=== PATIENT | male | born 1950 | race American Indian/Alaskan Native ===

== ENCOUNTER 2021-06-25 16:11 | Emergency (ER) | payer MEDICARE ==
[2021-06-25] MEDS ORDERED: SODIUM CHLORIDE 0.9% 1000 ML 1,000 ML IV ONE (17:56)
[2021-06-25] MEDS ORDERED: ONDANSETRON 4 MG/2 ML INJ IV ONE (17:56)
--- NOTE | 2021-06-25 18:00 | Emergency Department Report ---
ED N/V/D HPI - General Chief complaint: Nausea/Vomiting/Diarrhea Stated complaint: NAUSEA/ABD PAIN Time Seen by Provider: 06/25/21 17:47 Source: patient, old records reviewed (David discharge paperwork provided by patient) Mode of arrival: Ambulatory Limitations: No Limitations - History of Present Illness Initial comments: 70-year-old male with a past medical history hypertension, diabetes, and bilateral BKA presents to the hospital with complaints persistent nausea and vomiting with intermittent abdominal pain. Patient was recently admitted to [facility] June 20 to for similar symptoms. As per his discharge papers his diagnoses include nausea and vomiting, type 2 diabetes, acute on chronic kidney disease, dysphagia, fecal impaction, acute urinary retention, and lactic acidosis. Patient states that he was treated with a Granados catheter which was discontinued prior to discharge and states his urination has been normal. He states that his dysphagia upon initial admission has also remained resolved. He reports that he was treated with laxatives for his fecal impaction and which has also improved. He was discharged on Nexium and Reglan. Patient initially felt like he was getting better but then had 1 episode of vomiting today with sharp mid abdominal pain. Patient is currently pain-free. He denies fever, hematemesis, dysuria, melena, or diarrhea No previous [facility] record available for review - Related Data Previous Rx's Medication Instructions Recorded Last Taken Type Ondansetron [Zofran Odt] 4 mg PO Q8HR PRN #20 tab.rapdis 06/25/21 Unknown Rx Allergies Allergy/AdvReac Type Severity Reaction Status Date / Time No Known Allergies Allergy Verified 06/25/21 16:16 ED Review of Systems ROS: Stated complaint: NAUSEA/ABD PAIN Other details as noted in HPI Comment: All other systems reviewed and negative ED Past Medical Hx - Past Medical History Hx Hypertension: Yes Hx Diabetes: Yes Additional medical history: Elevated cholesterol, urine retention bph - Surgical History Hx Cholecystectomy: Yes Additional Surgical History: Bilateral BKA - Medications Home Medications: Home Medications Medication Instructions Recorded Confirmed Last Taken Type Ondansetron [Zofran Odt] 4 mg PO Q8HR PRN #20 tab.rapdis 06/25/21 Unknown Rx ED Physical Exam - General Limitations: No Limitations - Other Other exam information: General: No acute distress Head: Atraumatic Eyes: normal appearance ENT: Moist mucous membranes Neck: Normal appearance, no midline tenderness Chest: Clear to auscultation bilaterally CV: Regular rate and rhythm Abdomen: Soft, normal bowel sounds, nontender, nondistended, no rebound or guarding Back: Normal inspection Extremity: Bilateral BKA Neuro: Alert O x 3, no facial asymmetry, speech clear, no gross motor sensory deficit Psych: Appropriate behavior Skin: No rash ED Course Vital Signs 06/25/21 06/25/21 06/25/21 16:17 18:45 18:50 Temperature 97.4 F L 98.4 F Pulse Rate 69 64 Respiratory 16 12 Rate Blood Pressure 122/57 137/64 [Left] O2 Sat by Pulse 97 99 100 Oximetry - Reevaluation(s) Reevaluation #1: 06/25/21 22:51 repeat glucose 187 ED Medical Decision Making - Lab Data Result diagrams: 06/25/21 18:00 06/25/21 18:00 Lab Results 06/25/21 06/25/21 06/25/21 Range/Units 17:58 18:00 18:00 WBC 5.8 (4.5-11.0) K/mm3 RBC 4.23 (3.65-5.03) M/mm3 Hgb 11.6 L (11.8-15.2) gm/dl Hct 35.3 L (35.5-45.6) % MCV 83 L (84-94) fl MCH 28 (28-32) pg MCHC 33 (32-34) % RDW 13.9 (13.2-15.2) % Plt Count 155 (140-440) K/mm3 Lymph % (Auto) 20.5 (13.4-35.0) % [place] % (Auto) 9.2 H (0.0-7.3) % Eos % (Auto) 2.5 (0.0-4.3) % Baso % (Auto) 0.5 (0.0-1.8) % Lymph # (Auto) 1.2 (1.2-5.4) K/mm3 [place] # (Auto) 0.5 (0.0-0.8) K/mm3 Eos # (Auto) 0.1 (0.0-0.4) K/mm3 Baso # (Auto) 0.0 (0.0-0.1) K/mm3 Seg Neutrophils % 67.3 (40.0-70.0) % Seg Neutrophils # 3.9 (1.8-7.7) K/mm3 Sodium 134 L (137-145) mmol/L Potassium 3.8 (3.6-5.0) mmol/L Chloride 93.3 L (98-107) mmol/L Carbon Dioxide 28 (22-30) mmol/L Anion Gap 17 mmol/L BUN 37 H (9-20) mg/dL Creatinine 2.2 H (0.8-1.3) mg/dL Estimated GFR 30 ml/min BUN/Creatinine Ratio 17 % Glucose 299 H (75-100) mg/dL POC Glucose 291 H (70-105) mg/dL Calcium 9.8 (8.4-10.2) mg/dL Magnesium 1.90 (1.7-2.3) mg/dL Total Bilirubin 0.30 (0.1-1.2) mg/dL AST 15 (5-40) units/L ALT 14 (7-56) units/L Alkaline Phosphatase 69 (35-129) units/L Troponin T < 0.010 (0.00-0.029) ng/mL Total Protein 6.3 (6.3-8.2) g/dL Albumin 4.1 (3.9-5) g/dL Albumin/Globulin Ratio 1.9 % Lipase 43 (13-60) units/L 06/25/21 Range/Units 20:58 WBC (4.5-11.0) K/mm3 RBC (3.65-5.03) M/mm3 Hgb (11.8-15.2) gm/dl Hct (35.5-45.6) % MCV (84-94) fl MCH (28-32) pg MCHC (32-34) % RDW (13.2-15.2) % Plt Count (140-440) K/mm3 Lymph % (Auto) (13.4-35.0) % [place] % (Auto) (0.0-7.3) % Eos % (Auto) (0.0-4.3) % Baso % (Auto) (0.0-1.8) % Lymph # (Auto) (1.2-5.4) K/mm3 [place] # (Auto) (0.0-0.8) K/mm3 Eos # (Auto) (0.0-0.4) K/mm3 Baso # (Auto) (0.0-0.1) K/mm3 Seg Neutrophils % (40.0-70.0) % Seg Neutrophils # (1.8-7.7) K/mm3 Sodium (137-145) mmol/L Potassium (3.6-5.0) mmol/L Chloride (98-107) mmol/L Carbon Dioxide (22-30) mmol/L Anion Gap mmol/L BUN (9-20) mg/dL Creatinine (0.8-1.3) mg/dL Estimated GFR ml/min BUN/Creatinine Ratio % Glucose (75-100) mg/dL POC Glucose 277 H (70-105) mg/dL Calcium (8.4-10.2) mg/dL Magnesium (1.7-2.3) mg/dL Total Bilirubin (0.1-1.2) mg/dL AST (5-40) units/L ALT (7-56) units/L Alkaline Phosphatase (35-129) units/L Troponin T (0.00-0.029) ng/mL Total Protein (6.3-8.2) g/dL Albumin (3.9-5) g/dL Albumin/Globulin Ratio % Lipase (13-60) units/L ua reviewed - EKG Data -: EKG Interpreted by Ms EKG shows normal: sinus rhythm, ST-T waves (no stemi, nonspecific t wave abnormalities) Rate: normal (61) - Radiology Data Radiology results: report reviewed CT ABDOMEN AND PELVIS WITHOUT CONTRAST HISTORY: n,v abd pain. COMPARISON: None. TECHNIQUE: CT images of the abdomen and pelvis were obtained without administration of intravenous contrast. All CT scans at this location are performed using CT dose reduction for ALARA by means of automated exposure control. FINDINGS: Lungs/bones: Lung bases are clear Abdomen/pelvis: Within limits of a noncontrast exam the liver, spleen, adrenal glands, pancreas and upper GI tract appear normal. No definite renal stones are seen. No hydronephrosis. Prior cholecystectomy. Appendix appears normal. Urinary bladder is distended. There is some questionable mild thickening of the distal sigmoid colon however there is incomplete distention. Diverticulosis of the left colon. Degenerative changes seen throughout spine. Atherosclerotic changes of aorta IMPRESSION: 1. Colonic diverticulosis. Question mild thickening of the colon however there is incomplete distention. No significant inflammatory change. 2. Urinary bladder is distended. No definite renal or ureteral stone is seen. No hydronephrosis. 3. Degenerative changes seen throughout spine. - Medical Decision Making 70 yo male presents to the hospital with complaints of denies any abdominal pain. Definitely resolved without any ED intervention. Patient received IV Zofran and IV fluids and reports feeling better. CT of the pelvis does not show any acute findings. Labs reveal renal insufficiency with previous history reported. Patient be discharged on additional antiemetics to complement his current medications Critical Care Time: No Critical care attestation.: If time is entered above; I have spent that time in minutes in the direct care of this critically ill patient, excluding procedure time. ED Disposition Clinical Impression: Nausea and vomiting, Chronic renal insufficiency Disposition: HOME / SELF CARE / HOMELESS Is pt being admited?: No Does the pt Need Aspirin: No Condition: Stable Instructions: Nausea and Vomiting, Adult, Chronic Kidney Disease, Adult, [id number] Additional Instructions: Take the medication as prescribed. Follow-up with your doctor or doctor/clinic provided. Return if symptoms worsen as indicated by your discharge instructions. Prescriptions: Ondansetron [Zofran Odt] 4 mg PO Q8HR PRN #20 tab.rapdis PRN Reason: Nausea And Vomiting Referrals: DEACON RUSHING MD [Staff Physician] - 3-5 Days (Senior Cyber [employer] Analyst) NANCY ZEPEDA MD [Primary Care Provider] - 3-5 Days (Primary care doctor) Time of Disposition: 23:10
[2021-06-25 18:17] LABS: Basophils % (Auto) 0.5 % (0.0-1.8); Eosinophils # (Auto) 0.1 K/mm3 (0.0-0.4); Eosinophils % (Auto) 2.5 % (0.0-4.3); Hematocrit 35.3 % (35.5-45.6); Hemoglobin 11.6 gm/dl (11.8-15.2); Lymphocytes # (Auto) 1.2 K/mm3 (1.2-5.4); Lymphocytes % (Auto) 20.5 % (13.4-35.0); Mean Corpuscular HGB Conc 33 % (32-34); Mean Corpuscular Volume 83 fl (84-94); Monocytes # (Auto) 0.5 K/mm3 (0.0-0.8); Monocytes % (Auto) 9.2 % (0.0-7.3); Platelet Count 155 K/mm3 (140-440); Red Blood Count 4.23 M/mm3 (3.65-5.03); Red Cell Distribution Width 13.9 % (13.2-15.2)
[2021-06-25 18:47] LABS: Alanine Aminotransferase 14 units/L (7-56); Albumin 4.1 g/dL (3.9-5); BUN/Creatinine Ratio 17; Blood Urea Nitrogen 37 mg/dL (9-20); Calcium 9.8 mg/dL (8.4-10.2); Hemolysis Index 15
[2021-06-25] MEDS ORDERED: INSULIN REGULAR, HUMAN 100 UNITS/1 ML IV ONE (18:48)
[2021-06-25 18:51] VITALS: BP 137/64
--- NOTE | 2021-06-25 20:37 | Cat Scan Report ---
CT ABDOMEN AND PELVIS WITHOUT CONTRAST HISTORY: n,v abd pain. COMPARISON: None. TECHNIQUE: CT images of the abdomen and pelvis were obtained without administration of intravenous co ntrast. All CT scans at this location are performed using CT dose reduction for ALARA by means of au tomated exposure control. FINDINGS: Lungs/bones: Lung bases are clear Abdomen/pelvis: Within limits of a noncontrast exam the liver, spleen, adrenal glands, pancreas and upper GI tract appear normal. No definite renal stones are seen. No hydronephrosis. Prior cholecystec carlos. Appendix appears normal. Urinary bladder is distended. There is some questionable mild thickeni ng of the distal sigmoid colon however there is incomplete distention. Diverticulosis of the left col on. Degenerative changes seen throughout spine. Atherosclerotic changes of aorta IMPRESSION: 1. Colonic diverticulosis. Question mild thickening of the colon however there is incomplete distenti on. No significant inflammatory change. 2. Urinary bladder is distended. No definite renal or ureteral stone is seen. No hydronephrosis. 3. Degenerative changes seen throughout spine. Signer Name: Nnamdi Gutierrez MD Signed: 06/25/2021 8:33 PM Workstation Name: [id number]
[2021-06-25] MEDS ORDERED: ONDANSETRON 4 MG/2 ML INJ ONE (21:00)
[2021-06-25] MEDS ORDERED: SODIUM CHLORIDE 0.9% 1000 ML 1,000 ML ONE (21:00)
[2021-06-25] MEDS ORDERED: INSULIN REGULAR, HUMAN 100 UNITS/1 ML ONE (21:01)
[2021-06-25 23:04] LABS: Bilirubin,Urine NEG (Negative); Blood,Urine SM (Negative); Color,Urine Colorless (Yellow); Mucus,Urine FEW /HPF; Protein,Urine <15 mg/dL mg/dL (Negative); Urobilinogen,Urine < 2.0 mg/dL (<2.0); WBC,Urine < 1.0 /HPF (0.0-6.0)
--- NOTE | 2021-06-26 09:21 | Electrocardiograph Report ---
[facility] Test Date: 2021-06-25 Test Time: 17:11:43 Pat Name: ALYSE CAMARILLO Department: Room: Gender: M Credit Manager: CHANCE : 1950 Requested By: SHAJI HAYWOOD Order Number: [id number] Reading MD: Flavio Telles Measurements Intervals [place] Rate: 61 P: 44 IN: 174 QRS: 19 QRSD: 88 T: 102 QT: 423 QTc: 426 Interpretive Statements Sinus rhythm Nonspecific T abnormalities, lateral leads No previous ECG available for comparison Electronically Signed On 06-26-2021 9:20:37 EDT by Flavio Telles
== END 2021-06-25 23:56 | disposition home or self-care (01) ==
LOC: ED 16:11
DX: R11.2 Nausea with vomiting, unspecified (principal); I12.9 Hypertensive chronic kidney disease with stage 1 through stage 4 chronic kidney disease, or unspecified chronic kidney disease; E11.22 Type 2 diabetes mellitus with diabetic chronic kidney disease; N18.9 Chronic kidney disease, unspecified; R10.9 Unspecified abdominal pain
CPT/HCPCS: 36415; 74176; 80053; 81001; 82962; 83690; 83735; 84484; 85025; 93005; 96361; 96374; 96375; 99284; J2405; J7030; 96368; Q9967; J1815

== ENCOUNTER 2021-10-27 04:38 | Observation (INO) | payer OTHER, MEDICARE ==
[2021-10-27] MEDS ORDERED: ASPIRIN 325 MG TAB PO ONE (05:31)
--- NOTE | 2021-10-27 06:00 | XRay Report ---
CHEST 1 VIEW INDICATION / CLINICAL INFORMATION: chest pain STUDY TIME: 541 COMPARISON: None available. FINDINGS: SUPPORT DEVICES: None HEART / MEDIASTINUM: No significant abnormality. LUNGS / PLEURA: No significant acute pulmonary or pleural abnormality. No pneumothorax. ADDITIONAL FINDINGS: No significant additional findings. Signer Name: Maged Jefferson MD Signed: 10/27/2021 5:55 AM Workstation Name: [email or web address]
[2021-10-27 06:05] LABS: Basophils % (Auto) 0.8 % (0.0-1.8); Eosinophils # (Auto) 0.1 K/mm3 (0.0-0.4); Hematocrit 31.6 % (35.5-45.6); Hemoglobin 10.2 gm/dl (11.8-15.2); Lymphocytes # (Auto) 0.9 K/mm3 (1.2-5.4); Lymphocytes % (Auto) 15.1 % (13.4-35.0); Mean Corpuscular HGB Conc 32 % (32-34); Mean Corpuscular Volume 85 fl (84-94); Monocytes # (Auto) 0.5 K/mm3 (0.0-0.8); Monocytes % (Auto) 7.6 % (0.0-7.3); Platelet Count 147 K/mm3 (140-440); Red Cell Distribution Width 13.7 % (13.2-15.2)
[2021-10-27 06:25] LABS: Albumin 3.7 g/dL (3.9-5); Calcium 8.6 mg/dL (8.4-10.2)
--- NOTE | 2021-10-27 06:59 | Emergency Department Report ---
ED Chest Pain HPI - General Chief Complaint: Chest Pain Stated Complaint: CHEST PAIN Time Seen by Provider: 10/27/21 06:18 Source: patient, EMS, old records reviewed Mode of arrival: Stretcher Limitations: No Limitations - History of Present Illness Initial Comments: 71-year-old male with a past medical history diabetes, hypertension, chronic, bilateral BKA secondary to diabetes presents to the hospital complaints of mid chest pain shortness of breath since yesterday afternoon. Patient is intermittent. He reports nausea with 2 episodes of vomiting. Reports that he is having intermittent cough with productive of phlegm which exacerbates his pain. No fever reported. He reports a history of MT without stent placement. Nonsmoker. Cannot recall his last stress test and denies history of cardiac cath Severity scale (0 -10): 0 - Related Data Previous Rx's Medication Instructions Recorded Last Taken Type Ondansetron [Zofran Odt] 4 mg PO Q8HR PRN #20 tab.rapdis 06/25/21 Unknown Rx Allergies Allergy/AdvReac Type Severity Reaction Status Date / Time No Known Allergies Allergy Verified 09/29/21 07:45 Heart Score - HEART Score History: Slightly suspicious EKG: Normal Age: > 65 Risk factors: > 3 risk factors or hx of atherosclerotic disease Troponin: < normal limit HEART Score: 4 - EKG Read Time Time EKG Completed: 05:22 EKG Read Time: 05:26 ED Review of Systems ROS: Stated complaint: CHEST PAIN Other details as noted in HPI Comment: All other systems reviewed and negative ED Past Medical Hx - Past Medical History Previous Medical History?: Yes Hx Hypertension: Yes Hx CVA: Yes Hx Diabetes: Yes Additional medical history: Elevated cholesterol, urine retention bph - Surgical History Past Surgical History?: Yes Hx Cholecystectomy: Yes Additional Surgical History: Bilateral BKA - Medications Home Medications: Home Medications Medication Instructions Recorded Confirmed Last Taken Type Ondansetron [Zofran Odt] 4 mg PO Q8HR PRN #20 tab.rapdis 06/25/21 Unknown Rx ED Physical Exam - General Limitations: No Limitations - Other Other exam information: General: No acute distress Head: Atraumatic Eyes: normal appearance ENT: Moist mucous membranes Neck: Normal appearance, no midline tenderness Chest: Clear to auscultation bilaterally CV: Regular rate and rhythm Abdomen: Soft, normal bowel sounds, nontender, nondistended, no rebound or guarding Back: Normal inspection Extremity: Bilateral BKA Neuro: Alert O x 3, no facial asymmetry, speech clear, no gross motor sensory deficit Psych: Appropriate behavior Skin: No rash ED Course Vital Signs 10/27/21 10/27/21 10/27/21 04:58 05:30 05:46 Temperature 98.5 F Pulse Rate 54 L 59 L 63 Respiratory 16 16 11 L Rate Blood Pressure 105/45 84/42 Blood Pressure 105/47 [Right] O2 Sat by Pulse 96 96 Oximetry 10/27/21 10/27/21 10/27/21 06:00 06:16 06:30 Temperature Pulse Rate 62 67 63 Respiratory 14 15 14 Rate Blood Pressure 99/48 168/62 118/45 Blood Pressure [Right] O2 Sat by Pulse Oximetry 10/27/21 06:46 Temperature Pulse Rate 68 Respiratory 14 Rate Blood Pressure 177/60 Blood Pressure [Right] O2 Sat by Pulse Oximetry AKUA score - Akua Score Age > 65: (0) No Aspirin use within the Past 7 Days: (0) No 3 or more CAD Risk Factors: (1) Yes 2 or more Angina events in past 24 hrs: (1) Yes Known CAD with more than 50% Stenosis: (0) No Elevated Cardiac Markers: (0) No ST Deviation Greater than 0.5mm: (0) No AKUA Score: 2 ED Medical Decision Making - Lab Data Result diagrams: 10/27/21 05:43 10/27/21 05:43 Lab Results 10/27/21 10/27/21 Range/Units 05:43 05:43 WBC 6.1 (4.5-11.0) K/mm3 RBC 3.70 (3.65-5.03) M/mm3 Hgb 10.2 L (11.8-15.2) gm/dl Hct 31.6 L (35.5-45.6) % MCV 85 (84-94) fl MCH 28 (28-32) pg MCHC 32 (32-34) % RDW 13.7 (13.2-15.2) % Plt Count 147 (140-440) K/mm3 Lymph % (Auto) 15.1 (13.4-35.0) % [place] % (Auto) 7.6 H (0.0-7.3) % Eos % (Auto) 2.0 (0.0-4.3) % Baso % (Auto) 0.8 (0.0-1.8) % Lymph # (Auto) 0.9 L (1.2-5.4) K/mm3 [place] # (Auto) 0.5 (0.0-0.8) K/mm3 Eos # (Auto) 0.1 (0.0-0.4) K/mm3 Baso # (Auto) 0.0 (0.0-0.1) K/mm3 Seg Neutrophils % 74.5 H (40.0-70.0) % Seg Neutrophils # 4.6 (1.8-7.7) K/mm3 Sodium 140 (137-145) mmol/L Potassium 3.5 L (3.6-5.0) mmol/L Chloride 104.0 (98-107) mmol/L Carbon Dioxide 28 (22-30) mmol/L Anion Gap 12 mmol/L BUN 29 H (9-20) mg/dL Creatinine 2.0 H (0.8-1.3) mg/dL Estimated GFR 40 ml/min BUN/Creatinine Ratio 15 % Glucose 158 H (75-100) mg/dL Calcium 8.6 (8.4-10.2) mg/dL Total Bilirubin 0.40 (0.1-1.2) mg/dL AST 14 (5-40) units/L ALT 8 (7-56) units/L Alkaline Phosphatase 50 (35-129) units/L Troponin T 0.012 (0.00-0.029) ng/mL Total Protein 6.0 L (6.3-8.2) g/dL Albumin 3.7 L (3.9-5) g/dL Albumin/Globulin Ratio 1.6 % - EKG Data -: EKG Interpreted by Ne EKG shows normal: sinus rhythm, ST-T waves (No STEMI) Rate: bradycardia (56) - Radiology Data Radiology results: report reviewed CHEST 1 VIEW INDICATION / CLINICAL INFORMATION: chest pain STUDY TIME: 541 COMPARISON: None available. FINDINGS: SUPPORT DEVICES: None HEART / MEDIASTINUM: No significant abnormality. LUNGS / PLEURA: No significant acute pulmonary or pleural abnormality. No pneumothorax. ADDITIONAL FINDINGS: No significant additional findings. - Medical Decision Making 71 yo male with chest pain. There is some atypical components of chest pain however, patient is a heart score of 4 and several cardiac risk factors. Underlying cardiac work-up unknown and have not been performed at this facility. Patient has negative troponin and normal EKG in the ED and will be admitted for further cardiac work-up and evaluation. Critical Care Time: No Critical care attestation.: If time is entered above; I have spent that time in minutes in the direct care of this critically ill patient, excluding procedure time. ED Disposition Clinical Impression: Chest pain, CRI (chronic renal insufficiency), HTN (hypertension), Diabetes Disposition: ADMITTED INPATIENT Is pt being admited?: Yes Does the pt Need Aspirin: No Condition: Stable Instructions: Hypertension (ED), Diabetes Mellitus Type 2 in Adults (ED) Time of Disposition: 07:36 (DR Ferguson)
[2021-10-27] MEDS ORDERED: MORPHINE 2 MG/1 ML INJ IV PRN (07:40)
[2021-10-27] MEDS ORDERED: ACETAMINOPHEN 325 MG TAB PO PRN (07:40)
[2021-10-27] MEDS ORDERED: ONDANSETRON 4 MG/2 ML INJ IV PRN (07:40)
--- NOTE | 2021-10-27 08:25 | History and Physical Report ---
History of Present Illness Date of examination: 10/27/21 Date of admission: 10/27/2021 Chief complaint: Chest pain and shortness of breath since yesterday History of present illness: 71-year-old male patient with significant past medical history of diabetes, hypertension, peripheral vascular disease, bilateral BKA , diabetes presents to the ER with the complaints of mid chest pain shortness of breath since yesterday afternoon. Patient has intermittent chest pain. He reports nausea with 2 episodes of vomiting. Reports that he is having intermittent cough with pr oductive of phlegm which exacerbates his pain. No fever reported. He reports a history of [place] without stent placement. Nonsmoker. Cannot recall his last stress test and denies history of cardiac cath. For set of cardiac enzymes negative, EKG no acute ST-T segment changes Patient is alert awake hemodynamically stable Heart 2 episodes of nausea vomiting . Denies headache dizziness weakness or numbness Past History Past Medical History: CAD, diabetes, hypertension, hyperlipidemia, other (Peripheral vascular disease) Past Surgical History: Other (Status post bilateral BKA) Social history: denies: smoking, alcohol abuse, prescription drug abuse Family history: no significant family history Medications and Allergies Allergies Allergy/AdvReac Type Severity Reaction Status Date / Time No Known Allergies Allergy Verified 09/29/21 07:45 Home Medications Medication Instructions Recorded Confirmed Last Taken Type Ondansetron [Zofran Odt] 4 mg PO Q8HR PRN #20 tab.rapdis 06/25/21 Unknown Rx Active Meds: Active Medications Acetaminophen (Acetaminophen 325 Mg Tab) 650 mg PO Q4H PRN PRN Reason: Pain MILD(1-3)/Fever >100.5/HUGHES Morphine Sulfate (Morphine 2 Mg/1 Ml Inj) 2 mg IV Q4H PRN PRN Reason: Pain, Moderate (4-6) Ondansetron HCl (Ondansetron 4 Mg/2 Ml Inj) 4 mg IV Q8H PRN PRN Reason: Nausea And Vomiting Sodium Chloride (Sodium Chloride 0.9% 10 Ml Flush Syringe) 10 ml IV BID JESI Sodium Chloride (Sodium Chloride 0.9% 10 Ml Flush Syringe) 10 ml IV PRN PRN PRN Reason: LINE FLUSH Review of Systems Constitutional: no weight loss, no weight gain, no fever, no chills Ears, nose, mouth and throat: no nasal congestion, no nasal discharge Cardiovascular: chest pain, shortness of breath, no orthopnea, no palpitations, no syncope Respiratory: shortness of breath, no cough, no hemoptysis Gastrointestinal: no abdominal pain, no nausea, no vomiting Genitourinary Male: no dysuria, no hematuria Musculoskeletal: no myalgias, no arthritis Integumentary: no rash, no lesions Neurological: no seizures, no syncope, no tremors Psychiatric: no anxiety, no depression Endocrine: no cold intolerance, no heat intolerance Hematologic/Lymphatic: no easy bruising, no easy bleeding Allergic/Immunologic: no urticaria, no allergic rhinitis Exam - Constitutional Vitals: Temp Pulse Resp BP Pulse Ox 98.5 F 68 14 177/60 96 10/27/21 04:58 10/27/21 06:46 10/27/21 06:46 10/27/21 06:46 10/27/21 05:30 General appearance: Present: no acute distress, well-nourished - EENT Eyes: Present: PERRL, EOM intact - Neck Neck: Present: supple, normal ROM - Respiratory Respiratory effort: normal Respiratory: bilateral: diminished, negative: rales, rhonchi, wheezing - Cardiovascular Rhythm: regular Heart Sounds: Present: S1 & S2 - Extremities Extremities: no ischemia, No edema - Abdominal General gastrointestinal: Present: soft, non-tender, non-distended, normal bowel sounds - Integumentary Integumentary: Present: clear, warm - Musculoskeletal Musculoskeletal: strength equal bilaterally, generalized weakness - Psychiatric Psychiatric: appropriate mood/affect, cooperative - Neurologic Neurologic: moves all extremities HEART Score - HEART Score EKG: Normal Age: > 65 Risk factors: > 3 risk factors or hx of atherosclerotic disease Troponin: Troponin T 0.012 ng/mL (0.00-0.029) 10/27/21 05:43 Troponin: < normal limit Results - Labs CBC & Chem 7: 10/27/21 05:43 10/27/21 05:43 Labs: Abnormal lab results 10/27/21 10/27/21 Range/Units 05:43 05:43 Hgb 10.2 L (11.8-15.2) gm/dl Hct 31.6 L (35.5-45.6) % [place] % (Auto) 7.6 H (0.0-7.3) % Lymph # (Auto) 0.9 L (1.2-5.4) K/mm3 Seg Neutrophils % 74.5 H (40.0-70.0) % Potassium 3.5 L (3.6-5.0) mmol/L BUN 29 H (9-20) mg/dL Creatinine 2.0 H (0.8-1.3) mg/dL Glucose 158 H (75-100) mg/dL Total Protein 6.0 L (6.3-8.2) g/dL Albumin 3.7 L (3.9-5) g/dL Assessment and Plan -- Chest pain; angina IV morphine, sublingual nitroglycerin as needed Serial cardiac enzymes, Serial EKGs Echocardiogram for LV function ejection fraction We will try to get patient's home medications And resume appropriate meds Cardiology consult if needed -- Acute kidney injury; Due to vasomotor nephropathy Gentle hydration, monitor renal function Avoid nephrotoxin, consider nephrology consult --Hypokalemia; Replenished with KCl. Check magnesium Closely monitor electrolytes -- Type 2 diabetes mellitus; Accu-Chek, sliding scale coverage, ADA diet Check hemoglobin A1c if not done last 6 months Request home medications and resume his home meds Diabetic education, diabetic nutrition education prior to discharge --Peripheral vascular disease s/p bilateral BKA Aspirin and statin, supportive care PT OT evaluation and treatment --Gastroesophageal reflux disease; IV Pepcid and supportive care -- Hypertension; Moderate control Nitroglycerin, beta-blockers. Hydralazine Resume home antihypertensives As needed medications -- DVT prophylaxis; Lovenox subcu -- Full CODE STATUS We will closely monitor the patient and adjust management as needed Plan of care reviewed with the patient and his nurse Will try to get patient's old medical records And home medication list and resume as needed.. Advance care planning; +35 minutes I discussed with patient his condition, tests and reports, discussed with patient his diagnosis I also discussed with the patient his prognosis. Discussed the treatment plan, discussed cardiology consult will be requested If needed I discuss serial EKG and cardiac enzymes. I discussed possible stress test if patient's symptoms persist Patient had few questions, I answered all of them he agreed with the treatment plan Preventive health care counseling; 35 minutes Discussed with the patient the importance of compliance with medications diet and follow-up visits Discussed with the patient to complete the treatment plan, discussed with the patient the fall precautions And getting timely medical help and complying with the treatment and recommendations. Patient verbalized understanding
--- NOTE | 2021-10-27 10:59 | Electrocardiograph Report ---
[facility] Test Date: 2021-10-27 Test Time: 05:22:48 Pat Name: ALYSE CAMARILLO Department: Room: [place] [address] Gender: M Bodywork Therapist: EITAN : 1950 Requested By: SHAJI HAYWOOD Order Number: [id number] Reading MD: Silvano Adan Measurements Intervals [place] Rate: 56 P: 61 WI: 172 QRS: 37 QRSD: 88 T: -47 QT: 492 QTc: 477 Interpretive Statements Sinus rhythm Compared to ECG 06/25/2021 17:11:43 T-wave abnormality no longer present Electronically Signed On 10-27-2021 10:58:59 EDT by Silvano Adan
[2021-10-27] MEDS: INSULIN LISPRO 100 UNIT/ML SUB-Q SCH ×2 (17:00→21:50)
[2021-10-27] MEDS ORDERED: NITROGLYCERIN 0.4 MG TAB SUBL SL PRN (17:29)
[2021-10-27] MEDS ORDERED: hydrALAZINE 20 MG/1 ML INJ IV PRN (17:55)
[2021-10-27] MEDS ORDERED: MELATONIN 5 MG TAB PO PRN (17:58)
[2021-10-27] MEDS: hydrALAZINE 25 MG TAB PO SCH (21:44)
[2021-10-27] MEDS: carvediloL 12.5 MG TAB PO SCH (21:45)
[2021-10-27] MEDS: FAMOTIDINE 20 MG/2 ML INJ IV SCH (21:45)
[2021-10-27] MEDS ORDERED: carvediloL 6.25 MG TAB PO SCH (22:00)
[2021-10-28] MEDS: hydrALAZINE 25 MG TAB PO SCH ×2 (05:14→14:04)
[2021-10-28 05:36] LABS: Chol/HDL Ratio 2.59 %
--- NOTE | 2021-10-28 08:17 | Progress Note ---
Assessment and Plan Assessment and plan: -- Chest pain; angina IV morphine, sublingual nitroglycerin as needed Serial cardiac enzymes, Serial EKGs Echocardiogram for LV function ejection fraction We will try to get patient's home medications And resume appropriate meds Cardiology consult if needed -- Acute kidney injury; Due to vasomotor nephropathy Gentle hydration, monitor renal function Avoid nephrotoxin, consider nephrology consult --Hypokalemia; Replenished with KCl. Check magnesium Closely monitor electrolytes -- Type 2 diabetes mellitus; Accu-Chek, sliding scale coverage, ADA diet Check hemoglobin A1c if not done last 6 months Request home medications and resume his home meds Diabetic education, diabetic nutrition education prior to discharge --Peripheral vascular disease s/p bilateral BKA Aspirin and statin, supportive care PT OT evaluation and treatment --Gastroesophageal reflux disease; IV Pepcid and supportive care -- Hypertension; Moderate control Nitroglycerin, beta-blockers. Hydralazine Resume home antihypertensives As needed medications -- DVT prophylaxis; Lovenox subcu -- Full CODE STATUS We will closely monitor the patient and adjust management as needed Plan of care reviewed with the patient and his nurse Will try to get patient's old medical records And home medication list and resume as needed.. Advance care planning; +35 minutes I discussed with patient his condition, tests and reports, discussed with patient his diagnosis I also discussed with the patient his prognosis. Discussed the treatment plan, discussed cardiology consult will be requested If needed I discuss serial EKG and cardiac enzymes. I discussed possible stress test if patient's symptoms persist Patient had few questions, I answered all of them he agreed with the treatment plan Preventive health care counseling; 35 minutes Discussed with the patient the importance of compliance with medications diet and follow-up visits Discussed with the patient to complete the treatment plan, discussed with the patient the fall precautions And getting timely medical help and complying with the treatment and recommendations. Patient verbalized understanding Hospitalist Physical - Constitutional Vitals: Temp Pulse Resp BP Pulse Ox 98.5 F 69 18 118/63 96 10/28/21 03:45 10/28/21 03:45 10/28/21 03:45 10/28/21 03:45 10/28/21 04:35 General appearance: Present: no acute distress, well-nourished HEART Score - HEART Score EKG: Normal Age: > 65 Risk factors: > 3 risk factors or hx of atherosclerotic disease Troponin: Troponin T < 0.010 ng/mL (0.00-0.029) 10/27/21 14:02 Troponin: < normal limit Results - Labs CBC & Chem 7: 10/27/21 05:43 10/27/21 05:43 Labs: Laboratory Last Values WBC 6.1 K/mm3 (4.5-11.0) 10/27/21 05:43 RBC 3.70 M/mm3 (3.65-5.03) 10/27/21 05:43 Hgb 10.2 gm/dl (11.8-15.2) L 10/27/21 05:43 Hct 31.6 % (35.5-45.6) L 10/27/21 05:43 MCV 85 fl (84-94) 10/27/21 05:43 MCH 28 pg (28-32) 10/27/21 05:43 MCHC 32 % (32-34) 10/27/21 05:43 RDW 13.7 % (13.2-15.2) 10/27/21 05:43 Plt Count 147 K/mm3 (140-440) 10/27/21 05:43 Lymph % (Auto) 15.1 % (13.4-35.0) 10/27/21 05:43 [place] % (Auto) 7.6 % (0.0-7.3) H 10/27/21 05:43 Eos % (Auto) 2.0 % (0.0-4.3) 10/27/21 05:43 Baso % (Auto) 0.8 % (0.0-1.8) 10/27/21 05:43 Lymph # (Auto) 0.9 K/mm3 (1.2-5.4) L 10/27/21 05:43 [place] # (Auto) 0.5 K/mm3 (0.0-0.8) 10/27/21 05:43 Eos # (Auto) 0.1 K/mm3 (0.0-0.4) 10/27/21 05:43 Baso # (Auto) 0.0 K/mm3 (0.0-0.1) 10/27/21 05:43 Seg Neutrophils % 74.5 % (40.0-70.0) H 10/27/21 05:43 Seg Neutrophils # 4.6 K/mm3 (1.8-7.7) 10/27/21 05:43 Sodium 140 mmol/L (137-145) 10/27/21 05:43 Potassium 3.5 mmol/L (3.6-5.0) L 10/27/21 05:43 Chloride 104.0 mmol/L (98-107) 10/27/21 05:43 Carbon Dioxide 28 mmol/L (22-30) 10/27/21 05:43 Anion Gap 12 mmol/L 10/27/21 05:43 BUN 29 mg/dL (9-20) H 10/27/21 05:43 Creatinine 2.0 mg/dL (0.8-1.3) H 10/27/21 05:43 Estimated GFR 40 ml/min 10/27/21 05:43 BUN/Creatinine Ratio 15 % 10/27/21 05:43 Glucose 158 mg/dL (75-100) H 10/27/21 05:43 POC Glucose 113 mg/dL (70-105) H 10/27/21 21:04 Calcium 8.6 mg/dL (8.4-10.2) 10/27/21 05:43 Total Bilirubin 0.40 mg/dL (0.1-1.2) 10/27/21 05:43 AST 14 units/L (5-40) 10/27/21 05:43 ALT 8 units/L (7-56) 10/27/21 05:43 Alkaline Phosphatase 50 units/L (35-129) 10/27/21 05:43 Troponin T < 0.010 ng/mL (0.00-0.029) 10/27/21 14:02 Total Protein 6.0 g/dL (6.3-8.2) L 10/27/21 05:43 Albumin 3.7 g/dL (3.9-5) L 10/27/21 05:43 Albumin/Globulin Ratio 1.6 % 10/27/21 05:43 Triglycerides 82 mg/dL (2-149) 10/28/21 04:32 Cholesterol 135 mg/dL (50-199) 10/28/21 04:32 LDL Cholesterol Direct 74 mg/dL (50-130) 10/28/21 04:32 HDL Cholesterol 52 mg/dL (40-59) 10/28/21 04:32 Cholesterol/HDL Ratio 2.59 % 10/28/21 04:32 Granados/IV: Voiding Method Urinal Active Medications - Current Medications Current Medications: Generic Name Dose Route Start Last Admin Trade Name Freq PRN Reason Stop Dose Admin Acetaminophen 650 mg 10/27/21 07:40 Acetaminophen 325 Mg Tab PO Q4H PRN Pain MILD(1-3)/Fever >100.5/HUGHES Aspirin 81 mg 10/28/21 10:00 Aspirin 81 Mg Tab Chew PO QDAY JESI Atorvastatin Calcium 20 mg 10/27/21 22:00 10/27/21 21:44 Atorvastatin 20 Mg Tab PO 20 mg QHS JESI Administration Carvedilol 12.5 mg 10/27/21 22:00 10/27/21 21:45 Carvedilol 12.5 Mg Tab PO 12.5 mg BID JESI Administration Famotidine 10 mg 10/27/21 22:00 10/27/21 21:45 Famotidine 20 Mg/2 Ml Inj IV 10 mg BID JESI Administration Hydralazine HCl 25 mg 10/27/21 22:00 10/28/21 05:14 Hydralazine 25 Mg Tab PO 25 mg Q8HR JESI Administration Hydralazine HCl 10 mg 10/27/21 17:55 Hydralazine 20 Mg/1 Ml Inj IV Q4HR PRN Hypertension Insulin Human Lispro 0 unit 10/27/21 16:30 10/27/21 21:50 Insulin Lispro 100 Unit/Ml SUB-Q Not Given ACHS [facility] Protocol Melatonin 5 mg 10/27/21 17:58 Melatonin 5 Mg Tab PO QHS PRN Sleep Morphine Sulfate 2 mg 10/27/21 07:40 Morphine 2 Mg/1 Ml Inj IV Q4H PRN Pain, Moderate (4-6) Nitroglycerin 0.4 mg 10/27/21 17:29 Nitroglycerin 0.4 Mg Tab Subl SL .Q5MIN PRN Chest Pain Ondansetron HCl 4 mg 10/27/21 07:40 Ondansetron 4 Mg/2 Ml Inj IV Q8H PRN Nausea And Vomiting Sodium Chloride 10 ml 10/27/21 10:00 10/27/21 21:45 Sodium Chloride 0.9% 10 Ml Flush Syringe IV 10 ml BID JESI Administration Sodium Chloride 10 ml 10/27/21 07:40 Sodium Chloride 0.9% 10 Ml Flush Syringe IV PRN PRN LINE FLUSH
[2021-10-28] MEDS: INSULIN LISPRO 100 UNIT/ML SUB-Q SCH ×2 (09:40→14:04)
[2021-10-28] MEDS ORDERED: ASPIRIN 81 MG TAB CHEW PO SCH (10:00)
--- NOTE | 2021-10-28 10:58 | Electrocardiograph Report ---
[facility] Test Date: 2021-10-28 Test Time: 07:08:40 Pat Name: ALYSE CAMARILLO Department: Room: A453 1 Gender: M [employer]: ESA : 1950 Requested By: SHAJI HAYWOOD Order Number: [id number] Reading MD: Silvano Adan Measurements Intervals [place] Rate: 72 P: 69 MO: 171 QRS: 61 QRSD: 86 T: 90 QT: 391 QTc: 430 Interpretive Statements Sinus rhythm Nonspecific T abnormalities, lateral leads Compared to ECG 10/27/2021 05:22:48 T-wave abnormality now present Electronically Signed On 10-28-2021 10:58:02 EDT by Silvano Adan
[2021-10-28] MEDS: carvediloL 12.5 MG TAB PO SCH (11:02)
[2021-10-28] MEDS: FAMOTIDINE 20 MG/2 ML INJ IV SCH (11:03)
--- NOTE | 2021-10-28 11:50 | Progress Note ---
Assessment and Plan Assessment and plan: -- Chest pain; angina IV morphine, sublingual nitroglycerin as needed Serial cardiac enzymes, Serial EKGs Echocardiogram for LV function ejection fraction We will try to get patient's home medications And resume appropriate meds Cardiology consult if needed -- Acute kidney injury; Due to vasomotor nephropathy Gentle hydration, monitor renal function Avoid nephrotoxin, consider nephrology consult --Hypokalemia; Replenished with KCl. Check magnesium Closely monitor electrolytes -- Type 2 diabetes mellitus; Accu-Chek, sliding scale coverage, ADA diet Check hemoglobin A1c if not done last 6 months Request home medications and resume his home meds Diabetic education, diabetic nutrition education prior to discharge --Peripheral vascular disease s/p bilateral BKA Aspirin and statin, supportive care PT OT evaluation and treatment --Gastroesophageal reflux disease; IV Pepcid and supportive care -- Hypertension; Moderate control Nitroglycerin, beta-blockers. Hydralazine Resume home antihypertensives As needed medications -- DVT prophylaxis; Lovenox subcu -- Full CODE STATUS We will closely monitor the patient and adjust management as needed Plan of care reviewed with the patient and his nurse Will try to get patient's old medical records And home medication list and resume as needed.. Advance care planning; +35 minutes I discussed with patient his condition, tests and reports, discussed with patient his diagnosis I also discussed with the patient his prognosis. Discussed the treatment plan, discussed cardiology consult will be requested If needed I discuss serial EKG and cardiac enzymes. I discussed possible stress test if patient's symptoms persist Patient had few questions, I answered all of them he agreed with the treatment plan Preventive health care counseling; 35 minutes Discussed with the patient the importance of compliance with medications diet and follow-up visits Discussed with the patient to complete the treatment plan, discussed with the patient the fall precautions And getting timely medical help and complying with the treatment and recommendations. Patient verbalized understanding Hospitalist Physical - Constitutional Vitals: Temp Pulse Resp BP Pulse Ox 98.2 F 67 18 163/77 98 10/28/21 07:41 10/28/21 11:02 10/28/21 07:41 10/28/21 11:02 10/28/21 07:41 General appearance: Present: no acute distress, well-nourished HEART Score - HEART Score EKG: Normal Age: > 65 Risk factors: > 3 risk factors or hx of atherosclerotic disease Troponin: Troponin T < 0.010 ng/mL (0.00-0.029) 10/27/21 14:02 Troponin: < normal limit Results - Labs CBC & Chem 7: 10/27/21 05:43 10/27/21 05:43 Labs: Laboratory Last Values WBC 6.1 K/mm3 (4.5-11.0) 10/27/21 05:43 RBC 3.70 M/mm3 (3.65-5.03) 10/27/21 05:43 Hgb 10.2 gm/dl (11.8-15.2) L 10/27/21 05:43 Hct 31.6 % (35.5-45.6) L 10/27/21 05:43 MCV 85 fl (84-94) 10/27/21 05:43 MCH 28 pg (28-32) 10/27/21 05:43 MCHC 32 % (32-34) 10/27/21 05:43 RDW 13.7 % (13.2-15.2) 10/27/21 05:43 Plt Count 147 K/mm3 (140-440) 10/27/21 05:43 Lymph % (Auto) 15.1 % (13.4-35.0) 10/27/21 05:43 [place] % (Auto) 7.6 % (0.0-7.3) H 10/27/21 05:43 Eos % (Auto) 2.0 % (0.0-4.3) 10/27/21 05:43 Baso % (Auto) 0.8 % (0.0-1.8) 10/27/21 05:43 Lymph # (Auto) 0.9 K/mm3 (1.2-5.4) L 10/27/21 05:43 [place] # (Auto) 0.5 K/mm3 (0.0-0.8) 10/27/21 05:43 Eos # (Auto) 0.1 K/mm3 (0.0-0.4) 10/27/21 05:43 Baso # (Auto) 0.0 K/mm3 (0.0-0.1) 10/27/21 05:43 Seg Neutrophils % 74.5 % (40.0-70.0) H 10/27/21 05:43 Seg Neutrophils # 4.6 K/mm3 (1.8-7.7) 10/27/21 05:43 Sodium 140 mmol/L (137-145) 10/27/21 05:43 Potassium 3.5 mmol/L (3.6-5.0) L 10/27/21 05:43 Chloride 104.0 mmol/L (98-107) 10/27/21 05:43 Carbon Dioxide 28 mmol/L (22-30) 10/27/21 05:43 Anion Gap 12 mmol/L 10/27/21 05:43 BUN 29 mg/dL (9-20) H 10/27/21 05:43 Creatinine 2.0 mg/dL (0.8-1.3) H 10/27/21 05:43 Estimated GFR 40 ml/min 10/27/21 05:43 BUN/Creatinine Ratio 15 % 10/27/21 05:43 Glucose 158 mg/dL (75-100) H 10/27/21 05:43 POC Glucose 134 mg/dL (70-105) H 10/28/21 07:41 Calcium 8.6 mg/dL (8.4-10.2) 10/27/21 05:43 Total Bilirubin 0.40 mg/dL (0.1-1.2) 10/27/21 05:43 AST 14 units/L (5-40) 10/27/21 05:43 ALT 8 units/L (7-56) 10/27/21 05:43 Alkaline Phosphatase 50 units/L (35-129) 10/27/21 05:43 Troponin T < 0.010 ng/mL (0.00-0.029) 10/27/21 14:02 Total Protein 6.0 g/dL (6.3-8.2) L 10/27/21 05:43 Albumin 3.7 g/dL (3.9-5) L 10/27/21 05:43 Albumin/Globulin Ratio 1.6 % 10/27/21 05:43 Triglycerides 82 mg/dL (2-149) 10/28/21 04:32 Cholesterol 135 mg/dL (50-199) 10/28/21 04:32 LDL Cholesterol Direct 74 mg/dL (50-130) 10/28/21 04:32 HDL Cholesterol 52 mg/dL (40-59) 10/28/21 04:32 Cholesterol/HDL Ratio 2.59 % 10/28/21 04:32 Granados/IV: Voiding Method Urinal Active Medications - Current Medications Current Medications: Generic Name Dose Route Start Last Admin Trade Name Freq PRN Reason Stop Dose Admin Acetaminophen 650 mg 10/27/21 07:40 Acetaminophen 325 Mg Tab PO Q4H PRN Pain MILD(1-3)/Fever >100.5/HUGHES Aspirin 81 mg 10/28/21 10:00 10/28/21 11:02 Aspirin 81 Mg Tab Chew PO 81 mg QDAY JESI Administration Atorvastatin Calcium 20 mg 10/27/21 22:00 10/27/21 21:44 Atorvastatin 20 Mg Tab PO 20 mg QHS JESI Administration Carvedilol 12.5 mg 10/27/21 22:00 10/28/21 11:02 Carvedilol 12.5 Mg Tab PO 12.5 mg BID JESI Administration Famotidine 10 mg 10/27/21 22:00 10/28/21 11:03 Famotidine 20 Mg/2 Ml Inj IV 10 mg BID JESI Administration Hydralazine HCl 25 mg 10/27/21 22:00 10/28/21 05:14 Hydralazine 25 Mg Tab PO 25 mg Q8HR JESI Administration Hydralazine HCl 10 mg 10/27/21 17:55 Hydralazine 20 Mg/1 Ml Inj IV Q4HR PRN Hypertension Insulin Human Lispro 0 unit 10/27/21 16:30 10/28/21 09:40 Insulin Lispro 100 Unit/Ml SUB-Q Not Given ACHS [facility] Protocol Melatonin 5 mg 10/27/21 17:58 Melatonin 5 Mg Tab PO QHS PRN Sleep Morphine Sulfate 2 mg 10/27/21 07:40 Morphine 2 Mg/1 Ml Inj IV Q4H PRN Pain, Moderate (4-6) Nitroglycerin 0.4 mg 10/27/21 17:29 Nitroglycerin 0.4 Mg Tab Subl SL .Q5MIN PRN Chest Pain Ondansetron HCl 4 mg 10/27/21 07:40 Ondansetron 4 Mg/2 Ml Inj IV Q8H PRN Nausea And Vomiting Sodium Chloride 10 ml 10/27/21 10:00 10/28/21 11:03 Sodium Chloride 0.9% 10 Ml Flush Syringe IV 10 ml BID JESI Administration Sodium Chloride 10 ml 10/27/21 07:40 Sodium Chloride 0.9% 10 Ml Flush Syringe IV PRN PRN LINE FLUSH
--- NOTE | 2021-10-28 11:51 | Discharge Summary ---
Providers - Providers Date of Admission: 10/27/21 07:40 Date of discharge: 10/28/21 Attending physician: SELAM WORRELL Primary care physician: NANCY ZEPEDA Hospitalization Reason for admission: Worsening shortness of breath and chest pain Condition: Stable Pertinent studies: Chest x-ray no acute abnormality noted Echocardiogram; LVEF 60 to 65% mild concentric LVH Hospital course: 71-year-old male patient with significant past medical history of type 2 diabetes mellitus hypertension, peripheral vascular disease, bilateral BKA was admitted through emergency room with chest pain of 1 day duration patient was admitted to the hospital serial cardiac enzymes x3 negative , negative cardiac enzymes EKG no acute ST-T changes, echocardiogram normal ejection fraction. Patient's chest pain may be noncardiac probably secondary to gastroesophageal reflux disease versus musculoskeletal or both, and patient is placed on pain medications as well as Protonix The patient is comfortable denies any chest pain or shortness of breath, vital signs stable, physical examination prior to discharge is unremarkable Patient is stable at discharge Discharge diagnosis: -- Chest pain; angina Serial cardiac enzymes negative Serial EKG no acute ST-T changes Echocardiogram LV function within normal limits -- Acute kidney injury; Due to vasomotor nephropathy Gentle hydration, monitor renal function Avoid nephrotoxin, consider nephrology consult Follow nephrology if no improvement --Hypokalemia; resolved Replenished with KCl. Check magnesium Closely monitor electrolytes -- Type 2 diabetes mellitus; Accu-Chek, sliding scale coverage, ADA diet Check hemoglobin A1c if not done last 6 months Request home medications and resume his home meds Diabetic education, diabetic nutrition education prior to discharge --Peripheral vascular disease s/p bilateral BKA Aspirin and statin, supportive care PT OT evaluation and treatment --Gastroesophageal reflux disease; IV Pepcid and supportive care -- Hypertension; Moderate control Nitroglycerin, beta-blockers. Hydralazine Resume home antihypertensives As needed medications -- DVT prophylaxis; Lovenox subcu -- Full CODE STATUS We will closely monitor the patient and adjust management as needed Plan of care reviewed with the patient and his nurse Patient is hemodynamically and clinically stable at discharge. Patient is stable at discharge If patient has recurrent chest pain ,advised to see private cardiology, gastroenterology for further evaluation management of chest pain . Patient verbalized understanding Stable at discharge Disposition: 01 HOME / SELF CARE / HOMELESS Final Discharge Diagnosis (Prints w/discharge instructions): Chest pain angina resolved. Acute kidney injury due to vasomotor nephropathy. Hypokalemia corrected. Type 2 diabetes mellitus. Peripheral vascular disease. S/p BKA. Gastroesophageal reflux disease. Hypertension Time spent for discharge: 35 min Core Measure Documentation - Palliative Care Palliative Care/ Comfort Measures: Not Applicable - Core Measures Any of the following diagnoses?: none Exam - Constitutional Vitals: Temp Pulse Resp BP Pulse Ox 98.2 F 67 18 163/77 98 10/28/21 07:41 10/28/21 11:02 10/28/21 07:41 10/28/21 11:02 10/28/21 07:41 General appearance: Present: no acute distress, well-nourished - EENT Eyes: Present: PERRL, EOM intact - Neck Neck: Present: supple - Respiratory Respiratory effort: normal Respiratory: bilateral: diminished, negative: rales, rhonchi, wheezing - Cardiovascular Rhythm: regular Heart Sounds: Present: S1 & S2 - Extremities Extremities: no ischemia, No edema - Abdominal General gastrointestinal: Present: soft, non-tender, non-distended, normal bowel sounds - Integumentary Integumentary: Present: clear, warm - Musculoskeletal Musculoskeletal: strength equal bilaterally - Psychiatric Psychiatric: appropriate mood/affect - Neurologic Neurologic: moves all extremities Plan Activity: advance as tolerated Diet: other (Cardiac diet) Additional Instructions: If you have worsening symptoms contact MD or go to the nearest emergency room as needed. If you have recurrent chest pain need to see private uptwist spinner for further evaluation and management Follow up with: NANCY ZEPEDA MD [Primary Care Provider] - 7 Days Prescriptions: hydrALAZINE [Apresoline TAB] 25 mg PO Q8HR #90 tablet Aspirin [Aspirin BABY CHEW TAB] 81 mg PO QDAY #30 tab.chew carvediloL [Coreg] 12.5 mg PO BID #60 tablet AtorvaSTATin [Lipitor] 20 mg PO QHS #30 tablet Melatonin [Melatonin 5MG TAB] 5 mg PO QHS PRN #7 tablet PRN Reason: Sleep Pantoprazole [Protonix TAB] 20 mg PO QDAY #30 tablet.
[2021-10-28 16:35] VITALS: BP 179/73
== END 2021-10-28 18:05 | disposition home or self-care (01) ==
LOC: ED 04:38 → 4A 07:40 → INTOOBSV 07:40 → 4A 14:56
PROVIDERS: ADMIT Internal Medicine; ATTEND Internal Medicine
DX: R07.89 Other chest pain (principal); I10 Essential (primary) hypertension; E11.9 Type 2 diabetes mellitus without complications; I25.10 Atherosclerotic heart disease of native coronary artery without angina pectoris; N17.9 Acute kidney failure, unspecified; E87.6 Hypokalemia; I73.9 Peripheral vascular disease, unspecified; K21.9 Gastro-esophageal reflux disease without esophagitis; E78.5 Hyperlipidemia, unspecified; E78.00 Pure hypercholesterolemia, unspecified; N40.0 Benign prostatic hyperplasia without lower urinary tract symptoms; R33.9 Retention of urine, unspecified; Z90.49 Acquired absence of other specified parts of digestive tract; Z86.73 Personal history of transient ischemic attack (TIA), and cerebral infarction without residual deficits; Z96.653 Presence of artificial knee joint, bilateral
CPT/HCPCS: 36415; 71046; 80053; 80061; 82962; 84484; 85025; 93005; 96374; 96376; 99285; C8929; G0378; J3490; 93306